=== PATIENT | male | born 2000 | race Two or more races ===

== ENCOUNTER → 2024-12-02 | Outpatient (CLI) | payer MEDICAID, SELFPAY ==
--- NOTE | 2024-12-02 14:50 | XR_ITS ---
Examination: PA lateral chest 2 views TECHNIQUE: Upright PA lateral chest 2 views Exam date and time: December 02, 2024 1454 hours INDICATIONS: Coughing beginning one month ago FINDINGS: Normal heart size Lungs are clear. The osseous structures are intact IMPRESSION: No active disease
== END | disposition home or self-care (01) ==
DX: R05.9 Cough, unspecified (principal)
CPT/HCPCS: 71046

== ENCOUNTER 2025-07-23 14:11 | Emergency (ER) | payer MEDICAID, SELFPAY ==
[2025-07-23 14:17] VITALS: BP 167/97; PULSE 107; RESP 20; TEMP 36.6; O2SAT 96; BMI 35.2
--- NOTE | 2025-07-23 14:32 | EDNOTE_ITS ---
ED Wound/Laceration-RME/HPI General Chief Complaint: Wound/Laceration Stated Complaint: LAC L) 3RD FINGER Time Seen by Provider: 07/23/25 14:17 Arrival date/time: 07/23/25 14:11 24-year-old male presents to the Emergency Department for complaint of laceration to left hand third digit patient ports he accidentally cut himself with a knife today. Limitations: no limitations Related Data Home Medications ?Medication ?Instructions ?Recorded ?Confirmed NO HX MEDS ##0 06/15/14 Previous Rx's ?Medication ?Instructions ?Recorded Carbamide Peroxide OTIC MILTON * 1 drp otic (ear) BID IMP ACTION ##1 06/15/14 (DEBROX *) doxycycline hyclate 100 mg capsule 100 mg PO BID 7 day s #14 caps 07/23/25 ibuprofen 800 mg tablet 800 mg PO TID PRN pain #30 t abs 07/23/25 Allergies Allergy/AdvReac Type Severity Reaction Status Date / Time Penicillins Allergy Unknown Verified 07/23/25 14:13 Review of Systems Review of Systems Systems Reviewed: All systems reviewed, normal except as documented Constitutional Constitutional: Reports system reviewed and no additional complaints, except as documented, Denies fever(s) and Denies headache(s) Eyes Eyes: Reports system reviewed and no additional complaints, except as documented and Denies blurry vision ENT Ears, Nose, Mouth, and Throat: Reports system reviewed and no additional com plaints, except as documented, Denies headache(s), Denies nasal congestion and Denies nasal discharge Cardiovascular Cardiovascular: Reports system reviewed and no additional complaints, except as documented, Denies chest pain and Denies dyspnea Respiratory Respiratory: Reports system reviewed and no additional complaints, except as documented, Denies chest congestion, Denies cough and Denies dyspnea Gastrointestinal Gastrointestinal: Reports system reviewed and no additional complaints, except as documented and Denies abdominal pain Integumentary/Breasts Skin/Breast: Reports system reviewed and no additional complaints, except as documented, Denies rash and Reports wounds (Laceration left hand third digit) Neurologic Neurologic: Reports system reviewed and no additional complaints, except as documented, Reports as per HPI and Denies headache(s) Past Medical History Social History SMOKING STATUS: Never smoker ED Exam General Limitations: Present no limitations General appearance: Present alert and in no apparent distress Head Head exam: Present atraumatic Eye Eye exam: Present normal appearance, PERRL and EOMI ENT ENT exam: Present normal exam, normal oropharynx and mucous membranes moist Neck Neck exam: Present normal inspection, full ROM and trachea midline Chest Chest inspection: Present normal inspection and symmetric chest wall rise Respiratory Respiratory exam: Present normal lung sounds bilaterally Cardiovascular Cardiovascular exam: Present regular rate, normal rhythm and normal heart sounds Abdominal Exam Abdominal exam: Present soft and normal bowel sounds Extremities Exam Extremities exam: Present full ROM, tenderness and normal capillary refill; Absent joint swelling Back Exam Back exam: Present normal inspection and full ROM Neurological Exam Neurological exam: Present alert, oriented X3 and CN II-XII intact Psychiatric Psychiatric exam: Present normal affect and normal mood Skin Skin exam: Present warm, dry and other (Laceration left hand third digit) Course Quality Measures none Orders Category Date Time Status Set Up Suture Tray STAT Care 07/23/25 14:17 Active Wound Care NOW Care 07/23/25 14:17 Active Lidocaine 1% Vial 20 ml [Xylocaine 1% 20 ML] Med 07/23/25 14:17 Discontinued 20 ml INFL X1 ONE TET,DIP/PERT AC (Adult)-Tdap [Boostrix Adult (Tdap) Med 07/23/25 14:17 Discontinued Vacc] 0.5 ml IMI .ONCE ONE Vital Signs Vital signs: Vital Signs Temperature 97.9 F 07/23/25 14:17 Pulse Rate 107 H 07/23/25 14:17 Respiratory Rate 20 07/23/25 14:17 Blood Pressure 167/97 H 07/23/25 14:17 Pulse Oximetry (%) 96 07/23/25 14:17 Oxygen Delivery Method Room Air 07/23/25 14:17 O2 saturation 96% on room air within normal limits Wound / Laceration MDM Narrative MDM Narrative:: 24-year-old male presents to the Emergency Department for complaint of laceration to left hand third digit patient ports he accidentally cut himself with a knife today. On exam patient is approximate 3 cm laceration of the left hand palmar aspect middle finger Wound irrigated copiously laceration repair patient is full range of motion of the digit No active bleeding time discharge Tetanus updated Patient discharged home in no distress to follow-up with primary care doctor in the next 24 to 48 hours and for any worsening symptoms to return to the ER immediately Patient data External records reviewed:: [facility] previous records Clinical information provided by:: patient Social determinants that could affect healthcare access:: none Patient has the following chronic illnesses:: None How is presenting disease/condition affected by chronic disease/condition?: no chronic disease Evaluation data The following diagnostics were reviewed and interpreted by me:: other (specify) (N/A) Lab and/or radiology exams considered but not ordered:: Considered not ordered Interpretation Summary: N/A Medications / Prescriptions Medications or Prescriptions considered but not ordered:: Given Medication administrations:: Medication Administration History Discontinued Medications Diphtheria/Tetanus/Acell Pertussis (Diphth,Pertuss(Acell),Tet Vac 0.5 Ml Syr- Adult) 0.5 ml IMi .ONCE ONE Stop: 07/23/25 14:18 Last Admin: 07/23/25 14:35 Dose: 0.5 ml Documented By: MYRA Lidocaine HCl (Lidocaine Hcl 1% 20 Ml Vial) 20 ml INFL X1 ONE Stop: 07/23/25 14:18 Last Admin: 07/23/25 14:34 Dose: 20 ml Documented By: MYRA Comments: ADMINISTERED BY PROVIDER Given Consultations Consultation(s) initiated? (list below): No Diagnosis Wound Differential Diagnosis: laceration, abrasion and avulsion of skin Most likely diagnosis given after review of the tests above:: Laceration Admission Indicated Admission indicated?: not indicated Admission Request Was there a request for admission?: No Disposition Plan Disposition Plan: Discharge Discharge Attestation Discharge Attestation: The patient and all family members were given an opportunity to ask questions and understood the discharge instructions. Discharge instructions specifically effects, indications for sooner follow up or return to the emergency department, and the expected course of current diagnosis. Patient condition: Stable Discharge Plan Plan Patient Disposition: HOME (Self Care) Discharge Disposition comment: Stable Prescriptions/Referrals Prescriptions/Med Rec: New doxycycline hyclate 100 mg capsule 100 mg PO BID 7 Days Qty: 14 0RF ibuprofen 800 mg tablet 800 mg PO TID PRN (Reason: pain) Qty: 30 0RF No Action Carbamide Peroxide OTIC MILTON * (DEBROX *) 75 DROP/15 ML drops 1 drp otic (ear) BID Qty: 1 0RF NO HX MEDS Qty: 0 Problem List Clinical Impression: Laceration of finger of left hand Patient/Caregiver Discharge Instructions Education Materials: ED Laceration: All Closures Additional Instructions: Please follow up with your primary care doctor in the next 24-48hrs for any worsening symptoms return here immediately Print Language: Burkinan Stand Alone Forms: Janice Award Info., Patient Portal Info Letter Vaccines Vaccines Given During Stay: TDaP PA/INSURANCE VERIFICATION CLERK Supervising Physician PA/INSURANCE VERIFICATION CLERK Supervising Physician: Dr. floyd
[2025-07-23] MEDS: LIDOCAINE HCL 1% 20 ML VIAL INFL (14:34)
[2025-07-23] MEDS: DIPHTH,PERTUSS(ACELL),TET VAC 0.5 ML SYR- ADULT IMi (14:35)
--- NOTE | 2025-09-04 06:52 | PD.EDADDENDU ---
Emergency Room Addendum Addendum Narrative: Laceration repair was performed by me The wound is 3 cm left middle finger. The wound was copiously irrigated with normal saline and cleaned with Betadine. The wound was prepped and draped in the normal sterile fashion. The wound was anesthetized using 8 mL lidocaine 1%. The wound was explored for foreign bodies and [none were] found. The edges were reapproximated using 5-0 suture total 6 sutures. Bleeding was well controlled and the patient tolerated the procedure well.
== END 2025-07-23 15:25 | disposition home or self-care (01) ==
LOC: SERX 15:10
PROVIDERS: Emergency Provider Nurse Practitioner Primary Care
DX: S61.213A Laceration without foreign body of left middle finger without damage to nail, initial encounter (principal); W26.0XXA Contact with knife, initial encounter; Z23 Encounter for immunization
CPT/HCPCS: 12002; 90471; 90715; 99281; J3490